=== PATIENT | female | born 1955 | race Caucasian/White ===

== ENCOUNTER 2018-01-31 12:52 | Emergency (ER) | payer BC ==
[2018-01-31 13:27] VITALS: BP 116/65
--- NOTE | 2018-01-31 13:54 | UC ---
Abdominal Pain Female HPI - HPI Summary HPI Summary: 62 you female with a 2-3 week hx of n/v and early satiety the onset of symptoms was the day after starting meforim she states her sugars has been in the 120s she stopped her metforim yesterday and her symptoms have improved somewhat takes 2-3 bites of food and then feels full nausea vomits about 30 minutes after eating has had diaphoresis no CP or sob some fatigue no change in bowel habits no black or tarry stools no near syncope - History of Current Complaint Chief Complaint: UCGeneralIllness Stated Complaint: NAUSEA VOMITING Time Seen by Provider: 01/31/18 13:32 Hx Obtained From: Patient Onset/Duration: Gradual Onset, Lasting Weeks Severity Initially: Mild Severity Currently: Mild Pain Intensity: 0 Pain Scale Used: 0-10 Numeric Location: Other - no pain Radiates: No Character: Other - NA Aggravating Factor(s): Other: - NA Associated Signs and Symptoms: Positive: Diaphoresis, Nausea, Vomiting Allergies/Adverse Reactions: Allergies Allergy/AdvReac Type Severity Reaction Status Date / Time meperidine [From Demerol] Allergy Shortness Verified 01/31/18 13:37 of Breath amoxicillin [From Augmentin] AdvReac Vomiting Verified 01/31/18 13:37 clavulanic acid AdvReac Vomiting Verified 01/31/18 13:37 [From Augmentin] Home Medications: Home Medications Aspirin/Acetaminophen/Caffeine [Excedrin Migraine Caplet] 2 each PO Q6HR PRN [History Confirmed 01/31/18] Omeprazole CAP* [Prilosec CAP* 20 MG] 20 mg PO DAILY 01/31/18 [History Confirmed 01/31/18] PMH/Surg Hx/FS Hx/Imm Hx Previously Healthy: Yes Cancer History: Breast Cancer - Surgical History Surgical History: Yes Surgery Procedure, Year, and Place: BILATERAL MASTECTOMY WITH LEFT LYMPH NODE DISECTION. RECONSTUCTIVE BREAST SURGERY, 2009 GALL BLADDER REMOVAL, TUBAL LIGATION - Family History Known Family History: Positive: Cardiac Disease, Hypertension, Diabetes - Social History Alcohol Use: Rare Substance Use Type: None Smoking Status (MU): Never Smoked Tobacco Review of Systems Constitutional: Fatigue Skin: Negative Eyes: Negative ENT: Negative Respiratory: Negative Cardiovascular: Negative Gastrointestinal: Vomiting, Nausea Genitourinary: Negative Motor: Negative Neurovascular: Negative Musculoskeletal: Negative Neurological: Negative Psychological: Negative Is Patient Immunocompromised?: No All Other Systems Reviewed And Are Negative: Yes Physical Exam Triage Information Reviewed: Yes Appearance: Well-Appearing, No Pain Distress, Well-Nourished Vital Signs: Initial Vital Signs Temp 98 F 01/31/18 13:15 Pulse 89 01/31/18 13:15 Resp 16 01/31/18 13:15 BP 116/65 01/31/18 13:15 Pulse Ox 97 01/31/18 13:15 Eyes: Positive: Conjunctiva Clear ENT: Positive: Hearing grossly normal. Negative: Pharyngeal erythema, Nasal congestion, Trismus, Muffled voice, Hoarse voice Neck: Positive: Supple, Nontender, No Lymphadenopathy Respiratory: Positive: Lungs clear, Normal breath sounds, No respiratory distress, No accessory muscle use Cardiovascular: Positive: RRR, No Murmur Abdomen Description: Positive: Nontender, No Organomegaly. Negative: CVA Tenderness (R), CVA Tenderness (L), Distended, Hernia @, Splenomegaly Bowel Sounds: Positive: Present Musculoskeletal: Positive: ROM Intact, No Edema Neurological: Positive: Alert, Muscle Tone Normal Psychological Exam: Normal Skin Exam: Normal Diagnostics - EKG Cardiac Rate: NL Cardiac Rhythm: Sinus: Normal Ectopy: None ST Segment: Normal Abd Pain Female Course/Dx - Differential Dx/Diagnosis Provider Diagnoses: early satiety. nausea/vomiting. uncertain etiology? medication side effect Discharge - Sign-Out/Discharge Documenting (check all that apply): Discharge/Admit/Transfer - Discharge Plan Condition: Stable Disposition: HOME Prescriptions: Famotidine TAB* [Pepcid 20 MG TAB*] 20 mg PO DAILY #14 tab Ondansetron TAB* [Zofran Tab*] 4 mg PO Q6H PRN #10 tab PRN Reason: Nausea Patient Education Materials: Acute Nausea and Vomiting (ED) Referrals: Coleen Queen MD [Primary Care Provider] - As Soon As Possible Additional Instructions: I am unsure of the cause of your symptoms I suggest you see your MD later this week if symptoms persist you may need to see a greenhouse worker TO ER FOR NEW OR WORSENING SYMPTOMS you may also try [place] 2 tablespoons every 2 hours while awake for 2-3 days - Billing Disposition and Condition Condition: STABLE Disposition: Home
== END 2018-01-31 14:03 | disposition home or self-care (01) ==
LOC: UCCORT 12:52
DX: R68.81 Early satiety (principal); R11.2 Nausea with vomiting, unspecified; Z79.84 Long term (current) use of oral hypoglycemic drugs; Z88.5 Allergy status to narcotic agent; Z88.0 Allergy status to penicillin; Z88.8 Allergy status to other drugs, medicaments and biological substances; Z85.3 Personal history of malignant neoplasm of breast
CPT/HCPCS: 93005; 99202; G0463